=== PATIENT | male | born 1990 | race American Indian/Alaskan Native ===

== ENCOUNTER 2018-07-12 14:38 | Emergency (ER) | payer SELFPAY ==
[2018-07-12 14:58] VITALS: BP 150/104
--- NOTE | 2018-07-12 16:10 | Emergency Department Report ---
Chief Complaint: Urogenital-Male Stated Complaint: STD CHECK UP Time Seen by Provider: 07/12/18 15:39 - HPI History of Present Illness: This is a 28-year-old male nontoxic, well nourished in appearance, no acute signs of distress presents to the ED for a STD check. Patient denies any penile discharge. Patient denies any testicular pain or swelling. Patient denies any penile ulcers or lesions. Patient denies any nausea, vomiting, chest pain, shortness of breathe, fever, chills, headache, back pain, numbness, tingling, stiff neck. Patient denies any urinary symptoms. Patient stated allergies to PCN with no PMH. - Exam Vital Signs: Vital Signs 07/12/18 14:56 Temperature 98.7 F Pulse Rate 77 Respiratory 16 Rate Blood Pressure 150/104 O2 Sat by Pulse 98 Oximetry Physical Exam: GENERAL: The patient is a well-developed, well-nourished in no apparent distress. Patient is alert and acting appropriately for age. Alert and oriented 3, no apparent distress, normal gait, atraumatic. ABDOMEN: Soft, nontender, and nondistended. Positive bowel sounds. No hepatosplenomegaly was noted. No guarding or rebound tenderness, negative epigastric bruit. Negative psoas sign, negative scales sign, negative McBurneys sign MSE screening note: Focused history and physical exam performed. Due to findings the following was ordered: ED Medical Decision Making - Medical Decision Making This is a 28-year-old male that presents with nonmedical emergency. Patient is stable and was examined by me. Patient is asymptomatic and denies any symptoms. Patient states he just wants to be tested for STD. Event Marketing Assistant has approached patient for a co-pay but patient refused. I will refer the patient [facility]. At time of discharge, the patient does not seem toxic or ill in appearance. No acute signs of distress noted. Patient agrees to discharge treatment plan of care. No further questions noted by the patient. ED Disposition for MSE Clinical Impression: Possible exposure to STD Disposition: - MED SCREENING EXAM-LEFT Is pt being admited?: No Does the pt Need Aspirin: No Condition: Stable Instructions: Safe Sex (ED) Additional Instructions: Follow-up with a primary care, [facility], [facility] doctor in 3-5 days or if symptoms worsen and continue return to emergency room as soon as possible. Referrals: PRIMARY CARE, [Referring] - 3-5 Days CHIKI HAMMER MD [Staff Physician] - 3-5 Days [facility] [Outside] - 3-5 Days [facility] [Outside] - 3-5 Days [facility] [Referring] - 3-5 Days Forms: Work/School Release Form(ED)
== END 2018-07-12 16:18 | disposition left against medical advice (07) ==
LOC: ED 14:38
DX: Z20.2 Contact with and (suspected) exposure to infections with a predominantly sexual mode of transmission (principal); Z88.0 Allergy status to penicillin
CPT/HCPCS: 99281

== ENCOUNTER 2019-11-23 11:09 | Emergency (ER) | payer SELFPAY ==
[2019-11-23 11:38] VITALS: BP 143/89
--- NOTE | 2019-11-23 11:38 | Event Note ---
ED Screening Note ED Screening Note: states he went to urgent care yesterday and had elevated blood pressure but does not remember what it was states that he had a salad which he thought had too much sodium today states that today he felt overwhelmed, states he had a panic attack, states that his arms were tingling states that he has had increased stress lately, states that he is taking care of his family and having issues with the mother of his child, he states is he has allergy to penicillin he states that high blood pressure does run in his family
--- NOTE | 2019-11-23 11:40 | Emergency Department Report ---
Chief Complaint: Anxiety Stated Complaint: TINGLING/WEAK Time Seen by Provider: 11/23/19 11:23 - HPI History of Present Illness: pt is a 29 yo male who states he went to urgent care yesterday and had elevated blood pressure but does not remember what it was pt states that he had a salad which he thought had "too much sodium today" and believes this elevated his blood pressure today states that today he felt overwhelmed and was concerned about his blood pressure, he states he had a "panic attack", he states that he began breathing fast and states that his arms were tingling states that he has had increased stress lately, states that he is taking care of his family and having issues with the mother of his child, he states he has three jobs he denies any SI or HI he states that he feels much better now in the emergency room and has no symptoms at all currently he denies any JOHNSON, vision changes, complete numbness, weakness, CP or SOB he has allergy to penicillin he states that high blood pressure does run in his family initial vitals with blood pressure of 152/84 in triage, on repeat BP is 143/89 other vitals are normal on exam: non toxic appearing, no acute distress normal appearance of the eyes, EOMI, PERRL, no scleral icterus, no periorbital edema or ttp moist mucus membranes regular HR and rhythm, no murmurs, no gallops, no rubs normal breath sounds bilaterally, no w/r/r, no stridor, no accessory muscle use, no respiratory distress A&O x4, CN II-XII intact, normal gait, 5/5 muscle strength in the BUE/BLE, sensation intact throughout, no focal neuro deficit, normal distal pulses in the BUE/BLE skin is warm, dry, intact pt is currently asymptomatic, his vitals are stable, his blood pressure has mild elevation, discussed lifestyle modifications with pt including DASH diet, incorporate 30 minutes of daily exercise, and increasing water intake, will have pt follow up with PCP for close blood pressure monitoring and to evaluate for blood pressure medication management pt also given handout for the [facility] for anxiety and other outpatient resources, discussed coping mechanisms, he is not having any SI/HI or acute psychosis at this time, outpatient follow up is appropriate for this time medical screening performed and there is no threat to life or limb at this time pt referred to the appropriate resources discussed in detail with pt immediate strict return precautions - Exam Vital Signs: Vital Signs 11/23/19 11/23/19 11/23/19 11:14 11:25 11:35 Temperature 98.1 F 98.1 F Pulse Rate 99 H 99 H 77 Respiratory 16 24 Rate Blood Pressure 152/84 Blood Pressure 152/84 143/89 [Left] O2 Sat by Pulse 100 100 Oximetry MSE screening note: Focused history and physical exam performed. ED Disposition for MSE Clinical Impression: Elevated blood pressure reading Disposition: MED SCREENING EXAM-LEFT Is pt being admited?: No Does the pt Need Aspirin: No Condition: Stable Additional Instructions: please increase you water intake. please follow up with a primary care doctor in the next 2-3 days. eat a low sodium diet, incorporate 30 minutes of daily exercise. avoid marijuana use. return to the emergency room immediately for any new or worsening symptoms. Referrals: SHARRI GRAY MD [Staff Physician] - 2-3 Days [facility] [Provider Group] - 2-3 Days [facility] [Outside] - 2-3 Days [facility]Note 3[facility] [Outside] - 2-3 Days Time of Disposition: 11:38 Print Language: CENTRAL AFRICAN
== END 2019-11-23 11:43 | disposition left against medical advice (07) ==
LOC: ED 11:09
DX: R53.1 Weakness (principal); Z53.21 Procedure and treatment not carried out due to patient leaving prior to being seen by health care provider

== ENCOUNTER 2020-07-22 11:23 | Emergency (ER) | payer OTHER ==
--- NOTE | 2020-07-22 11:37 | Event Note ---
ED Screening Note Date of service: 07/22/20 Time: 11:36 ED Screening Note: 30-year-old -I[place] male with a past medical history of hypertension panic attacks and anxiety presents to the emergency room states that he has had tingling to his right tongue and feels his left lip does not raise up. Patient reports he thinks his smile is not symmetric. He states that this started last night around 8 PM. Patient has normal gait no pronator drift talking on the phone without difficulties hand economic development manager equal. Patient is alert and oriented x3 not. Distress. Answering all questions appropriate no slurred speech. This initial assessment/diagnostic orders/clinical plan/treatment(s) is/are subject to change based on patients health status, clinical progression and re- assessment by fellow clinical providers in the ED. Further treatment and workup at subsequent clinical providers discretion. Patient/guardian urged not to elope from the ED as their condition may be serious if not clinically assessed and managed. Initial orders include:
[2020-07-22] MEDS ORDERED: amLODIPine 5 MG TAB PO ONE (12:05)
--- NOTE | 2020-07-22 12:53 | Cat Scan Report ---
CT head/brain wo con INDICATION / CLINICAL INFORMATION: 30 years Male; Facial palsy r. TECHNIQUE: Routine CT head without contrast. All CT scans at this location are performed using CT dos e reduction for ALARA by means of automated exposure control. COMPARISON: None. FINDINGS: BRAIN / INTRACRANIAL CONTENTS: The brain appears to demonstrate appropriate attenuation. The ventricu lar system is within normal limits in size and configuration. There is no CT evidence of acute intrac ranial hemorrhage or significant mass effect. ORBITS: No significant abnormality of visualized orbits. SINUSES / MASTOIDS: No significant abnormality in the visualized paranasal sinuses or mastoid air carol ls. CRANIOCERVICAL JUNCTION: No significant abnormality. ADDITIONAL FINDINGS: None. IMPRESSION: 1. There is no CT evidence of acute intracranial process. Signer Name: René Martinez MD Signed: 07/22/2020 12:49 PM Workstation Name: [id number]
[2020-07-22 13:19] VITALS: BP 149/97
[2020-07-22 13:21] LABS: Basophils % (Auto) 0.6 % (0.0-1.8); Eosinophils # (Auto) 0.1 K/mm3 (0.0-0.4); Eosinophils % (Auto) 1.6 % (0.0-4.3); Hematocrit 42.5 % (35.5-45.6); Hemoglobin 14.5 gm/dl (11.8-15.2); Lymphocytes # (Auto) 1.3 K/mm3 (1.2-5.4); Lymphocytes % (Auto) 29.8 % (13.4-35.0); Mean Corpuscular HGB Conc 34 % (32-34); Mean Corpuscular Volume 92 fl (84-94); Monocytes # (Auto) 0.3 K/mm3 (0.0-0.8); Monocytes % (Auto) 6.2 % (0.0-7.3); Platelet Count 231 K/mm3 (140-440); Red Blood Count 4.64 M/mm3 (3.65-5.03); Red Cell Distribution Width 13.5 % (13.2-15.2)
[2020-07-22 13:24] LABS: BUN/Creatinine Ratio 9; Blood Urea Nitrogen 10 mg/dL (9-20); Calcium 9.6 mg/dL (8.4-10.2); Hemolysis Index 6
--- NOTE | 2020-07-22 14:02 | Emergency Department Report ---
ED General Adult HPI - General Chief complaint: Neuro Symptoms/Deficit Stated complaint: STROKE SYM/WEAK Time Seen by Provider: 07/22/20 12:03 Source: patient Mode of arrival: Ambulatory Limitations: No Limitations - History of Present Illness Initial comments: This is a 30-year-old male who presents with symptoms typical of Rodrigues's palsy. Onset was 8:00 last night. Patient describes some vague soreness at the angle of his right mandible which is his affected side. He has not experienced any fever or chills or swelling of that area. Does not complain of earache. He states that he is unable to close his right eye properly. He has some right facial droop. He does have some alteration of taste at the tip of his tongue. He does not describe any facial numbness. He denies any extremity weakness or numbness or any other neurological symptoms. His quick NIH stroke score was 1 for a partial facial paresis on the right. Patient has never had symptoms like this before. Patient does admit to noncompliance with his blood pressure medication for at least 3 weeks. He does not refer headache to me. -: Gradual, hour(s) (More than 16 hours) Location: face (No pain just weakness) Radiation: non-radiation Quality: other Consistency: constant Improves with: none Worsens with: none Associated Symptoms: denies other symptoms Treatments Prior to Arrival: none - Related Data Previous Rx's Medication Instructions Recorded Last Taken Type Amlodipine Besylate [Norvasc] 5 mg PO DAILY #30 tablet 07/22/20 Unknown Rx predniSONE [Deltasone] 40 mg PO QDAY #10 tab 07/22/20 Unknown Rx valACYclovir [Valtrex] 1,000 mg PO BID #40 tab 07/22/20 Unknown Rx Allergies Allergy/AdvReac Type Severity Reaction Status Date / Time Penicillins Allergy Unknown Verified 07/12/18 14:58 ED Review of Systems ROS: Stated complaint: STROKE SYM/WEAK Other details as noted in HPI Constitutional: denies: chills, fever Eyes: other (Difficulty closing eye). denies: eye pain, eye discharge, vision change ENT: other (Alteration in taste). denies: ear pain, throat pain Respiratory: denies: cough, shortness of breath, wheezing Cardiovascular: denies: chest pain, palpitations Endocrine: no symptoms reported Gastrointestinal: denies: abdominal pain, nausea, diarrhea Genitourinary: denies: urgency, dysuria Musculoskeletal: denies: back pain, joint swelling, arthralgia Skin: denies: rash, lesions Neurological: denies: headache, weakness, paresthesias Psychiatric: denies: anxiety, depression Hematological/Lymphatic: denies: easy bleeding, easy bruising ED Past Medical Hx - Past Medical History Previous Medical History?: Yes Hx Hypertension: Yes Additional medical history: panic attacks - Surgical History Past Surgical History?: Yes - Social History Smoking Status: Never Smoker Substance Use Type: Marijuana - Medications Home Medications: Home Medications Medication Instructions Recorded Confirmed Last Taken Type Amlodipine Besylate [Norvasc] 5 mg PO DAILY #30 tablet 07/22/20 Unknown Rx predniSONE [Deltasone] 40 mg PO QDAY #10 tab 07/22/20 Unknown Rx valACYclovir [Valtrex] 1,000 mg PO BID #40 tab 07/22/20 Unknown Rx ED Physical Exam - General Limitations: No Limitations General appearance: alert, in no apparent distress - Head Head exam: Present: atraumatic, normocephalic - Eye Eye exam: Present: normal appearance, other (Difference in eye opening/lid lag) - ENT ENT exam: Present: mucous membranes moist, other (Facial asymmetry, mild) - Neck Neck exam: Present: normal inspection. Absent: tenderness, meningismus, lymphadenopathy, thyromegaly - Respiratory Respiratory exam: Present: normal lung sounds bilaterally. Absent: respiratory distress - Cardiovascular Cardiovascular Exam: Present: regular rate, normal rhythm. Absent: systolic murmur, diastolic murmur, rubs, gallop - GI/Abdominal GI/Abdominal exam: Present: soft, normal bowel sounds. Absent: distended, tenderness, guarding, rebound - Rectal Rectal exam: Present: deferred - Extremities Exam Extremities exam: Present: normal inspection - Back Exam Back exam: Present: normal inspection - Neurological Exam Neurological exam: Present: alert, oriented X3. Absent: CN II-XII intact (Partial right facial paresis which is obviously peripheral affecting the forehead and the orbicularis oculi muscles), motor sensory deficit - Psychiatric Psychiatric exam: Present: normal affect, normal mood - Skin Skin exam: Present: warm, dry, intact, normal color. Absent: rash ED Course Vital Signs 07/22/20 07/22/20 07/22/20 11:28 12:15 12:45 Temperature 97.9 F Pulse Rate 82 74 88 Respiratory 18 8 L Rate Blood Pressure 154/107 149/97 O2 Sat by Pulse 98 100 Oximetry 07/22/20 13:19 Temperature Pulse Rate Respiratory 18 Rate Blood Pressure O2 Sat by Pulse 97 Oximetry - Reevaluation(s) Reevaluation #1: Given medicine for hypertension. CT head was negative. Patient was given a detailed explanation, actually 3 times concerning the pathophysiology and usual natural history of Rodrigues's palsy. He will be given expletive discharge instructions. He will be started on Valtrex as well as prednisone. He will be placed on Norvasc. He is told to use an [id number] eye moisturizer. He is discharged in stable condition. 07/22/20 14:04 ED Medical Decision Making - Lab Data Result diagrams: 07/22/20 12:26 07/22/20 12:26 Laboratory Results - last 24 hr 07/22/20 07/22/20 12:26 12:26 WBC 4.5 RBC 4.64 Hgb 14.5 Hct 42.5 MCV 92 MCH 31 MCHC 34 RDW 13.5 Plt Count 231 Lymph % (Auto) 29.8 Sebastian % (Auto) 6.2 Eos % (Auto) 1.6 Baso % (Auto) 0.6 Lymph # (Auto) 1.3 Sebastian # (Auto) 0.3 Eos # (Auto) 0.1 Baso # (Auto) 0.0 Seg Neutrophils % 61.8 Seg Neutrophils # 2.8 Sodium 137 Potassium 4.6 Chloride 100.3 Carbon Dioxide 25 Anion Gap 16 BUN 10 Creatinine 1.1 Estimated GFR > 60 BUN/Creatinine Ratio 9 Glucose 74 L Calcium 9.6 Critical care attestation.: If time is entered above; I have spent that time in minutes in the direct care of this critically ill patient, excluding procedure time. ED Disposition Clinical Impression: Right-sided Rodrigues's palsy Disposition: DC-01 TO HOME OR SELFCARE Is pt being admited?: No Does the pt Need Aspirin: No Condition: Stable Instructions: Rodrigues Palsy, Adult Additional Instructions: Follow-up with the [facility]. Ask your blood pressure every day particularly when you are taking these medicines. Rx as directed. Return to the emergency department any acute change or problem. However, Rodrigues's palsy may worsen some before it starts to improve. Hopefully the medicine will make a positive difference. It is strongly recommended that you follow-up on your blood pressure as well as Rodrigues's palsy. Also, [id number] eye gel at night or drops during the day is recommended as right eye dryness can occur with this problem. Prescriptions: predniSONE [Deltasone] 40 mg PO QDAY #10 tab Amlodipine Besylate [Norvasc] 5 mg PO DAILY #30 tablet valACYclovir [Valtrex] 1,000 mg PO BID #40 tab Referrals: OH BAGLEY MD [Primary Care Provider] - 2-3 Days [facility] [Provider Group] - 3-5 Days Time of Disposition: 14:10
== END 2020-07-22 14:00 | disposition home or self-care (01) ==
LOC: ED 11:23
DX: G51.0 Bell's palsy (principal); I10 Essential (primary) hypertension; F12.10 Cannabis abuse, uncomplicated; Z79.899 Other long term (current) drug therapy; Z88.0 Allergy status to penicillin
CPT/HCPCS: 36415; 70450; 80048; 82962; 85025